=== PATIENT | male | born 1975 ===

== ENCOUNTER 2018-05-06 21:10 | Observation (INO) ==
[2018-05-06] MEDS ORDERED: MORPHINE 4 MG/1 ML VIAL IV STA (21:54)
[2018-05-07] MEDS ORDERED: ACETAMINOPHEN 325 MG TABLET PO PRN (00:19)
[2018-05-07] MEDS ORDERED: MORPHINE 4 MG/1 ML VIAL IV PRN (00:19)
[2018-05-07] MEDS: LACTATED RINGERS 1,000 ML IV SCH ×2 (01:00→08:00)
[2018-05-07] MEDS: PIPERACILLIN/TAZOBACTAM 3,375 MG in SODIUM CHLORIDE 0.9% 100 ML IV SCH ×2 (03:00→11:26)
[2018-05-07] MEDS ORDERED: INFLUENZA VIRUS VACCINE 0.5 ML SYRINGE IM ONE (05:27)
[2018-05-07] MEDS ORDERED: cefOXitin 2,000 MG in SYRINGE 1 EACH IV ONE (06:39)
[2018-05-07] MEDS ORDERED: NALOXONE 0.4 MG/ML VIAL ONE (08:49)
[2018-05-07] MEDS ORDERED: BUPIVACAINE 0.5% 50 ML VIAL ONE (09:02)
[2018-05-07] MEDS ORDERED: LIDOCAINE 1%/EPI INJ 20 ML VIAL ONE (09:03)
[2018-05-07] MEDS ORDERED: TISSUE ADHESIVE 1 EACH APPLICATOR TOP ONE (09:03)
[2018-05-07] MEDS ORDERED: PROPOFOL 200 MG/20 ML VIAL IV ONE (09:15)
[2018-05-07] MEDS ORDERED: fentaNYL 100 MCG/2 ML VIAL ONE (09:16)
[2018-05-07] MEDS ORDERED: SEVOFLURANE 1 UNIT/15 MINUTE INH ONE (09:16)
[2018-05-07] MEDS ORDERED: ONDANSETRON 4 MG/2 ML VIAL ONE (09:16)
[2018-05-07] MEDS ORDERED: GLYCOPYRROLATE 0.4 MG/2 ML VIAL ONE (09:16)
[2018-05-07] MEDS ORDERED: HYDROmorphone 2 MG/1 ML VIAL ONE (09:16)
[2018-05-07] MEDS ORDERED: MIDAZOLAM 2 MG/2 ML VIAL ONE (09:17)
[2018-05-07] MEDS ORDERED: SUCCINYLCHOLINE 200 MG/10 ML VIAL ONE (09:17)
[2018-05-07] MEDS ORDERED: ACETAMINOPHEN 1,000 MG/100 ML VIAL IV ONE (09:17)
[2018-05-07] MEDS ORDERED: ROCURONIUM 100 MG/10 ML VIAL IV ONE (09:17)
[2018-05-07] MEDS ORDERED: NEOSTIGMINE 10 MG/10 ML VIAL ONE (09:17)
[2018-05-07 11:38] VITALS: BP 122/88
== END 2018-05-07 15:15 | disposition home or self-care (01) ==
LOC: EDBD → EDUNIT# → N.ED 21:10 → N.EDINP 21:55 → INTOOBSV 21:55 → N.3E 23:20
PROVIDERS: ADMIT Surgery; ATTEND Surgery